=== PATIENT | female | born 1945 | race Caucasian/White ===

== ENCOUNTER 2020-02-18 09:00 | Outpatient (RCR) | payer MEDICARE, SELFPAY | END 2020-02-18 09:05 | disposition home or self-care (01) | LOC: PT 09:00 | PROVIDERS: Visit Provider Nurse Practitioner Family | DX: M54.2 Cervicalgia (principal) | CPT/HCPCS: 20560; 97010; 97014; 97035; 97110; 97140; 97163; 97164; G0283 ==

== ENCOUNTER 2020-12-07 09:00 | Outpatient (RCR) | payer MEDICARE, SELFPAY | END 2020-12-07 11:00 | disposition home or self-care (01) | LOC: PT.CARL 09:00 | PROVIDERS: PCP Family Medicine; Visit Provider Internal Medicine | DX: M54.2 Cervicalgia (principal) | CPT/HCPCS: 97014; 97035; 97110; 97140; 97163; 97164; G0283 ==

== ENCOUNTER 2021-02-20 09:00 | Outpatient (RCR) | payer MEDICARE, SELFPAY | END 2021-03-02 16:03 | disposition home or self-care (01) | LOC: PT.CARL 09:00 | PROVIDERS: PCP Family Medicine; Visit Provider Nurse Practitioner Family | DX: M70.62 Trochanteric bursitis, left hip (principal) | CPT/HCPCS: 97010; 97035; 97110; 97140; 97163 ==

== ENCOUNTER 2021-07-10 15:00 | Outpatient (RCR) | payer MEDICARE, SELFPAY | END 2021-08-03 12:08 | disposition home or self-care (01) | LOC: PT.CARL 15:00 | PROVIDERS: PCP Family Medicine; Visit Provider Orthopaedic Surgery | DX: M25.561 Pain in right knee (principal); M16.12 Unilateral primary osteoarthritis, left hip; M54.32 Sciatica, left side | CPT/HCPCS: 20561; 97010; 97014; 97035; 97110; 97140; 97163; 97164; G0283 ==

== ENCOUNTER 2021-11-20 13:00 | Outpatient (RCR) | payer MEDICARE, SELFPAY | END 2021-11-27 16:47 | disposition home or self-care (01) | LOC: PT.CARL 13:00 | PROVIDERS: PCP Family Medicine; Visit Provider Orthopaedic Surgery | DX: M16.12 Unilateral primary osteoarthritis, left hip (principal) | CPT/HCPCS: 97010; 97014; 97110; 97112; 97116; 97163; 97164; 97530; G0283 ==

== ENCOUNTER 2022-02-12 10:00 | Outpatient (RCR) | payer MEDICARE, OTHER, SELFPAY | END 2022-02-15 13:49 | disposition home or self-care (01) | LOC: PT.CARL 10:00 | PROVIDERS: Visit Provider Nurse Practitioner Family | DX: M54.2 Cervicalgia (principal) | CPT/HCPCS: 20560; 97010; 97012; 97014; 97035; 97110; 97140; 97163; 97164; G0283 ==

== ENCOUNTER 2022-08-06 06:46 | Outpatient (RCR) | payer MEDICARE, SELFPAY | END 2022-09-10 13:45 | disposition home or self-care (01) | LOC: PT 06:46 | PROVIDERS: PCP Family Medicine; Visit Provider Orthopaedic Surgery | DX: M67.854 Other specified disorders of tendon, left hip (principal); M25.552 Pain in left hip | CPT/HCPCS: 97110; 97163 ==